=== PATIENT | male | born 1950 | race Caucasian/White ===

== ENCOUNTER 2016-08-29 19:25 | Emergency (ER) | payer MEDICARE ==
[~2016-08-29] VITALS: Ht 177.8 cm; Wt 99.8 kg
[2016-08-29 19:25] VITALS: BP 154/88
[2016-08-29] MEDS ORDERED: TETRACAINE 0.5% OPHTH SOLUTION 4ML BOTTLE. ONE (19:32)
[2016-08-29] MEDS ORDERED: FLUORESCEIN 1MG EYE STRIP. ONE (19:36)
[2016-08-29] MEDS ORDERED: DIPHTH,PERTUSS(ACELL),TET TOX 0.5 ML DISP.SYRIN. VAX IM ONE ×2 (19:41→19:45)
[2016-08-29] MEDS ORDERED: TETRACAINE 0.5% OPHTH SOLUTION 4ML BOTTLE. OD ONE (19:45)
[2016-08-29] MEDS ORDERED: HYDROcodone/APAP 5/325MG 1 TAB TABLET PO ONE (19:45)
[2016-08-29] MEDS ORDERED: FLUORESCEIN 1MG EYE STRIP. OD ONE (19:45)
[2016-08-29] MEDS ORDERED: IBUPROFEN 600 MG TABLET. PO ONE (19:45)
--- NOTE | 2016-08-29 19:46 | PHYS DOC ---
Adult General Chief Complaint Chief Complaint: EYE PROBLEMS HPI HPI Patient is a 66-year-old gentleman who presents here today with a foreign body sensation to his right eye. Patient reports that he was around a lot of sawdust all day today he was working and he had his eye protected. Patient went to take a shower to remove all the sawdust from his hair his body when some of the sawdust in his hair fell into his eye he's been having discomfort ever since. Patient complaining of pain to his right eye. No change in his vision. Patient is waiting approximately an hour and half at home hoping the pain would improve however it has not. Patient has any other symptomology. Patient's tetanus status is not up-to-date. Patient denies any fevers shakes chills nausea vomiting diarrhea. Patient's physical exam was significant for conjunctival injection. Patient's upper and lower eyelids were inverted and no foreign body was identified. Patient's pupils are equally round and reactive to light. Patient instructed motions are all intact. His right eye was fluorescein stained and there was a small area of fluorescein uptake at approximately 12 o'clock position. Patient received instant relief in pain after tetracaine drops were instilled in his right eye. Patient's right eye was irrigated with saline. Patient feels significant improved. Patient be discharged home after tetanus status is updated. #1 corneal abrasion: Likely secondary to sawdust fell from his hair when he was taking a shower. There is no foreign body identified however there is fluorescein uptake on the right eye exam. Tetanus status will be updated. Patient was sent home with ibuprofen. Patient was sent home with Bleph-10 eyedrops. Patient instructed to follow-up with his family physician within one to 2 days for reevaluation. Patient receives return the ER for any further problems. Review of Systems Review of Systems Constitutional: Denies fever or chills [] HENT: Denies nasal congestion or sore throat [] Respiratory: Denies cough or shortness of breath [] Cardiovascular: No additional information not addressed in HPI [] All other review systems are negative except as documented in the history of present illness portion. Current Medications Current Medications Current Medications Medications (Trade) Dose Ordered Sig/Garfield Start Time Stop Time Status Last Admin Dose Admin Fluorescein Sodium (Ful-Alejandra 1mg) [address] [facility]-MED ONCE 08/29/16 19:36 08/29/16 19:37 DC Tetracaine HCl (Tetracaine) 40 drop STK-MED ONCE 08/29/16 19:32 08/29/16 19:33 DC Physical Exam Physical Exam Constitutional: Well developed, well nourished, no acute distress, non-toxic appearance. [] HENT: Normocephalic, atraumatic, bilateral external ears normal, oropharynx moist, no oral exudates, nose normal. [] Eyes: PERRLA, EOMI, Neck: Normal range of motion, no tenderness, supple, no stridor. [] Skin: Warm, dry, [] Extremities: ROM intact, Neurologic: Alert and oriented X 3, normal motor function, normal sensory function, no focal deficits noted. [] Psychologic: Affect normal, judgement normal, mood normal. [] EKG EKG [] Radiology/Procedures Radiology/Procedures [] Course & Med Decision Making Course & Med Decision Making Pertinent Labs and Imaging studies reviewed. (See chart for details) [] Dragon Disclaimer Dragon Disclaimer This chart was dictated in whole or in part using Voice Recognition software in a busy, high-work load, and often noisy Emergency Department environment. It may contain unintended and wholly unrecognized errors or omissions. Departure Departure: Impression: Primary Impression: Corneal abrasion, right Disposition: 01 HOME, SELF-CARE Condition: IMPROVED Referrals: OZZIE MOHAMUD MD (PCP) Patient Instructions: Eye - Corneal Abrasion Scripts Sulfacetamide Sodium (BLEPH-10) 5 Ml Drops 2 DROP OD TID for 5 Days, #5 ML Prov: PRAKASH KAUR MD 08/29/16 Hydrocodone Bit/Acetaminophen (NORCO 5-325 TABLET) 1 Each Tablet 1 TAB PO PRN Q6HRS Y for PAIN, #6 TAB 0 Refills Prov: PRAKASH KAUR MD 08/29/16 Ibuprofen (IBUPROFEN) 600 Mg Tablet 600 MG PO QID Y for PAIN, #20 Prov: PRAKASH KAUR MD 08/29/16 Problem Qualifiers Primary Impression: Corneal abrasion, right Encounter type: initial encounter Qualified Codes: S05.01XA - Injury of conjunctiva and corneal abrasion without foreign body, right eye, initial encounter PRAKASH KAUR MD August 29, 2016 19:46
[2016-08-29] MEDS ORDERED: IBUP600T16 PO (19:48)
[2016-08-29] MEDS ORDERED: HYDR-971 PO (19:48)
[2016-08-29] MEDS ORDERED: SULF5DRO OD (19:48)
[2016-08-29] MEDS ORDERED: SULFACETAMIDE 10% OPHTH SOLUTION 15ML BOTTLE. ONE (19:57)
[2016-08-29] MEDS ORDERED: SULFACETAMIDE 10% OPHTH SOLUTION 15ML BOTTLE. OD ONE (20:15)
[2016-08-29] MEDS ORDERED: ASPI-612 PO (20:25)
[2016-08-29] MEDS ORDERED: ATOR20TA58 PO (20:25)
[2016-08-29] MEDS ORDERED: OMEG1CAP2 PO (20:25)
[2016-08-29] MEDS ORDERED: DICL75TA PO (20:25)
== END 2016-08-29 20:15 | disposition home or self-care (01) ==
LOC: ER 19:25
DX: S05.01XA Injury of conjunctiva and corneal abrasion without foreign body, right eye, initial encounter (principal); X58.XXXA Exposure to other specified factors, initial encounter; Y93.89 Activity, other specified; Y99.8 Other external cause status; Y92.89 Other specified places as the place of occurrence of the external cause
CPT/HCPCS: 90471; 90715; 99284-25

== ENCOUNTER 2019-08-27 08:11 | Emergency (ER) | payer MEDICARE ==
[~2019-08-27] VITALS: Ht 177.8 cm; Wt 97.0 kg
[~2019-08-27 08:11] MED LIST: ASPI-612 PO; ATOR20TA58 PO; DICL75TA PO; HYDR-3165 PO; IBUP600T16 PO; OMEG1CAP2 PO; SULF5DRO OD
[2019-08-27 08:19] VITALS: BP 150/97
[2019-08-27] MEDS ORDERED: FLUORESCEIN 1MG EYE STRIP. ONE (08:21)
[2019-08-27] MEDS ORDERED: TETRACAINE 0.5% OPHTH SOLUTION 4ML BOTTLE. OD ONE (08:30)
[2019-08-27] MEDS ORDERED: ERYT1OIN6 OP (08:56)
[2019-08-27] MEDS ORDERED: GENT5DRO3 OS (08:56)
--- NOTE | 2019-08-27 08:56 | PHYS DOC ---
Past History Past Medical History: Arthritis, High Cholesterol, Other Past Surgical History: Appendectomy, Knee Replacement, Other Alcohol Use: Occasionally Drug Use: None General Adult EDM: Chief Complaint: EYE PROBLEMS HPI: HPI: Patient is a 69-year-old male who presented to ER today for evaluation of left eye problem. Patient said he was cleaning his chimney last night, felt like there was some dirt got into his left eye, he washed his eye with water under the sink last night he felt he got everything out however when he woke up this morning he felt like there is something in his left eye, feeling like the foreign body sensation. Review of Systems: Review of Systems: Constitutional: Denies fever or chills Eyes: Denies change in visual acuity, positive for left eye irritation HENT: Denies nasal congestion or sore throat Respiratory: Denies cough or shortness of breath Cardiovascular: Denies chest pain or edema GI: Denies abdominal pain, nausea, vomiting, bloody stools or diarrhea : Denies dysuria Musculoskeletal: Denies back pain or joint pain Integument: Denies rash Neurologic: Denies headache, focal weakness or sensory changes Endocrine: Denies polyuria or polydipsia Lymphatic: Denies swollen glands Psychiatric: Denies depression or anxiety Heart Score: Risk Factors: Risk Factors: DM, Current or recent (<one month) smoker, HTN, HLP, family h istory of CAD, obesity. Risk Scores: Score 0 - 3: 2.5% MACE over next 6 weeks - Discharge Home Score 4 - 6: 20.3% MACE over next 6 weeks - Admit for Clinical Observation Score 7 - 10: 72.7% MACE over next 6 weeks - Early Invasive Strategies Current Medications: Current Meds: Current Medications Medications (Trade) Dose Ordered Sig/Garfield Start Time Stop Time Status Last Admin Dose Admin Fluorescein Sodium (Ful-Alejandra 1mg) 1 strip STK-MED ONCE 08/27/19 08:21 08/27/19 08:21 DC Tetracaine HCl (Tetracaine) 2 drop 1X ONCE 08/27/19 08:30 08/27/19 08:31 DC Allergies: Allergies: Allergies Coded Allergies Type Severity Reaction Last Updated Verified Penicillins Allergy Severe Anaphylaxis 08/29/16 Yes iodine Allergy Severe Hives 08/29/16 Yes Physical Exam: PE: Constitutional: Well developed, well nourished, no acute distress, non-toxic appearance. [] HENT: Normocephalic, atraumatic, bilateral external ears normal, oropharynx moist, no oral exudates, nose normal. [] Eyes: PERRLA, EOMI, conjunctiva normal, no discharge. There area severe small pieces of foreign bodies under left upper eyelid and one embedded in left cornea. NO HYPHEMA. Neck: Normal range of motion, no tenderness, supple, no stridor. [] Cardiovascular:Heart rate regular rhythm, no murmur [] Lungs & Thorax: Bilateral breath sounds clear to auscultation [] Abdomen: Bowel sounds normal, soft, no tenderness, no masses, no pulsatile masses. [] Skin: Warm, dry, no erythema, no rash. [] Back: No tenderness, no CVA tenderness. [] Extremities: No tenderness, no cyanosis, no clubbing, ROM intact, no edema. [] Neurologic: Alert and oriented X 3, normal motor function, normal sensory function, no focal deficits noted. [] Psychologic: Affect normal, judgement normal, mood normal. [] Current Patient Data: Vital Signs: Vital Signs Date Time Temp Pulse Resp B/P (MAP) Pulse Ox O2 Delivery O2 Flow Rate FiO2 20 08:19 98.2 80 18 150/97 (114) 99 Room Air EKG: EKG: [] Radiology/Procedures: Radiology/Procedures: LEFT CORNEA FOREIGN BODY REMOVAL: tetracaine was used to anesthesized left corrnea, cotton tips were used to sweep the inner upper eye lid to remove the foreign body. An 18 gauge needle was used to flick the foreign body out of left cornea. WOOD LAMP EXAM SHOWN SOME DYE UPTAKE AT 9 OCLOCK POSITION CONSISTENT WITH CORNEA ABRASION. NO HYPHEMA, NO OPEN GLOBE INJURY. [] Course & Med Decision Making: Course & Med Decision Making Pertinent Labs and Imaging studies reviewed. (See chart for details) [] Dragon Disclaimer: Dragon Disclaimer: This electronic medical record was generated, in whole or in part, using a voice recognition dictation system. Departure Departure: Impression: Primary Impression: Corneal abrasion, left Additional Impression: Foreign body of left cornea Disposition: 01 HOME, SELF-CARE Condition: STABLE Referrals: OZZIE MOHAMUD MD (PCP) please follow up with an opthalmologist in 2 days for reevaluation. Patient Instructions: Eye - Corneal Abrasion, Eye - Corneal Foreign Body Scripts Erythromycin Base (Erythromycin) 1 Gm Oint...g. 1 GM OP TID for left cornea abrasion for 7 Days, #1 MISC Prov: OZZIE KEVIN DO 08/27/19 Gentamicin Sulfate (GENTAK) 5 Ml Drops 2 DROP OS QID for left cornea abrasion for 5 Days, #5 ML 0 Refills Prov: OZZIE KEVIN DO 08/27/19 OZZIE KEVIN DO August 27, 2019 08:56
== END 2019-08-27 09:13 | disposition home or self-care (01) ==
LOC: ER 08:11
DX: T15.02XA Foreign body in cornea, left eye, initial encounter (principal); X58.XXXA Exposure to other specified factors, initial encounter; Y93.89 Activity, other specified; Y92.89 Other specified places as the place of occurrence of the external cause; Y99.8 Other external cause status
CPT/HCPCS: 65220; 99284

== ENCOUNTER 2020-10-14 12:29 | Emergency (ER) | payer MEDICARE ==
[~2020-10-14] VITALS: Ht 177.8 cm; Wt 99.1 kg
[~2020-10-14 12:29] MED LIST changes: -ASPI-612 PO; +ASPI-889 PO; +ERYT1OIN6 OP; +GENT5DRO3 OS
--- NOTE | 2020-10-14 12:40 | PHYS DOC ---
Past History Past Medical History: Arthritis, High Cholesterol, Other Past Surgical History: Appendectomy, Knee Replacement, Other Alcohol Use: Occasionally Drug Use: None Adult General HPI HPI Patient is a 70-year-old male presenting for right flank pain. Has history of this, reports he was seen in [place] August 17 and was diagnosed with a right-sided 5 mm kidney stone. He was given appropriate pain medication, Flomax and discharged home with return precautions. Reports his pain subsided x1 day after said ER visit and did not require any additional pain medication but continued to take Flomax faithfully. He is unsure if he passed said stone. Reports he has been asymptomatic until earlier today started reporting right flank pain that radiated into his groin region. States he thinks this is similar flareup to prior kidney stone but is unsure if this is old or new. Denies any other medical issues, no prior history of cardiac disease, no recent fever, chest pain, ripping or tearing sensation in chest, shortness of breath, changes in motor or sensory or neuro function. Reports he is healthy, has cholesterol issues only Review of Systems Review of Systems Fourteen body systems of review of systems have been reviewed. See HPI for pertinent positives and negative responses, other cruz all other systems are negative, non-pertinent or non-contributory Allergies Allergies Allergies Coded Allergies Type Severity Reaction Last Updated Verified Penicillins Allergy Severe Anaphylaxis 08/29/16 Yes iodine Allergy Severe Hives 08/29/16 Yes Physical Exam Physical Exam Constitutional: Well developed, well nourished, no acute distress, non-toxic appearance. HENT: Normocephalic, atraumatic, bilateral external ears normal, oropharynx moist, no oral exudates, nose normal. Eyes: PERRLA, EOMI, conjunctiva normal, no discharge. Neck: Normal range of motion, no tenderness, supple, no stridor. Cardiovascular: Heart rate regular, sinus rhythm, no murmurs rubs or gallops Lungs & Thorax: Bilateral breath sounds clear to auscultation Abdomen: Bowel sounds normal, soft, no tenderness, no masses, no pulsatile masses. Nonsurgical abdomen, no peritoneal signs Skin: Warm, dry, no erythema, no rash. Back: No tenderness, no CVA tenderness. Extremities: No tenderness, no cyanosis, no clubbing, ROM intact, no edema. Neurologic: Alert and oriented X 3, grossly normal motor & sensory function, no focal deficits noted. Psychologic: Affect normal, judgement normal, mood normal. Current Patient Data Vital Signs Vital Signs Date Time Temp Pulse Resp B/P (MAP) Pulse Ox O2 Delivery O2 Flow Rate FiO2 10/14/20 12:41 97.8 61 18 169/102 (124) 99 Room Air Vital Signs Date Time Temp Pulse Resp B/P (MAP) Pulse Ox O2 Delivery O2 Flow Rate FiO2 10/14/20 12:41 97.8 61 18 169/102 (124) 99 Room Air Lab Results Laboratory Tests Test 10/14/20 12:50 10/14/20 12:55 Urine Collection Type Unknown Urine Color Yellow Urine Clarity Clear Urine pH 5.5 Urine Specific Temple >=1.030 Urine Protein Neg Urine Glucose (UA) Neg mg/dL Urine Ketones (Stick) Neg mg/dL Urine Blood Neg Urine Nitrite Neg Urine Bilirubin Neg Urine Urobilinogen Dipstick 0.2 mg/dL Urine Leukocyte Esterase Neg Urine RBC 0 /HPF Urine WBC Rare /HPF Urine Squamous Epithelial Cells Occ /LPF Urine Bacteria 0 /HPF Urine Mucus Slight /LPF White Blood Count 7.2 x10^3/uL Red Blood Count 4.44 x10^6/uL Hemoglobin 13.7 g/dL Hematocrit 40.1 % Mean Corpuscular Volume 90 fL Mean Corpuscular Hemoglobin 31 pg Mean Corpuscular Hemoglobin Concent 34 g/dL Red Cell Distribution Width 15.0 % Platelet Count 224 x10^3/uL Neutrophils (%) (Auto) 65 % Lymphocytes (%) (Auto) 24 % Monocytes (%) (Auto) 7 % Eosinophils (%) (Auto) 3 % Basophils (%) (Auto) 1 % Neutrophils # (Auto) 4.7 x10^3uL Lymphocytes # (Auto) 1.7 x10^3/uL Monocytes # (Auto) 0.5 x10^3/uL Eosinophils # (Auto) 0.2 x10^3/uL Basophils # (Auto) 0.1 x10^3/uL Sodium Level 143 mmol/L Potassium Level 4.2 mmol/L Chloride Level 107 mmol/L Carbon Dioxide Level 25 mmol/L Anion Gap 11 Blood Urea Nitrogen 17 mg/dL Creatinine 0.8 mg/dL Estimated GFR (Cockcroft-Gault) 95.6 Glucose Level 112 mg/dL Calcium Level 8.9 mg/dL Troponin I Quantitative < 0.017 ng/mL Current Medications Medications (Trade) Dose Ordered Sig/Garfield Route PRN Reason Start Time Stop Time Status Last Admin Dose Admin Sodium Chloride 1,000 ml @ 1,000 mls/hr 1X ONCE IV 10/14/20 13:00 10/14/20 13:59 10/14/20 12:59 Ketorolac Tromethamine (Toradol 30mg Vial) 30 mg 1X ONCE IVP 10/14/20 13:00 10/14/20 13:02 DC 10/14/20 12:59 EKG EKG EKG ordered and interpreted by myself at 1305 hrs. as sinus rhythm at 54 bpm, unremarkable intervals, no axis deviation, no acute ischemic findings, no STEMI Radiology/Procedures Radiology/Procedures EXAM: CT ABDOMEN/PELVIS WITHOUT CONTRAST. HISTORY: Right flank pain, renal stones. TECHNIQUE: Computed tomography of the abdomen and pelvis was performed without intravenous contrast. One or more of the following individualized dose reduction techniques were utilized for this examination: 1. Automated exposure control. 2. Adjustment of the mA and/or kV according to patient size. 3. Use of iterative reconstruction technique. COMPARISON: None. FINDINGS: Lung windows through the visualized portions of the bases reveal mild atelectasis or trace pulmonary edema. Coronary atherosclerotic calcifications are noted. A calculus within the right distal ureter measures 7 x 5 mm. There is mild right hydronephrosis and hydroureter with perinephric stranding. There are no additional renal or ureteral calculi. A small gallstone is noted. The liver, pancreas, adrenal glands and spleen are unremarkable without contrast. There are no pathologically enlarged lymph nodes. The prostate is mildly enlarged for patient age. The bladder is decompressed but demonstrates wall thickening. Sigmoid and left colonic diverticulosis is moderate to severe. The appendix is surgically absent. There is no small bowel obstruction. Bone windows reveal a large Schmorl's node at the inferior plate of T8 results in a vertebral body fracture and overall moderate loss of body height. There is a moderate Schmorl's of the inferior endplate of L1. Degenerative disc disease is moderate to severe diffusely. IMPRESSION: 1. 7 mm right distal ureteral calculus with mild proximal obstructive findings. 2. A moderate inferior endplate compression fracture at T8 remains open and extends to the superior endplate. 3. Cholelithiasis. 4. Mild basilar atelectasis versus trace pulmonary edema. Electronically signed by: Fredi Schroeder MD (10/14/2020 1:22 PM) [id number] Heart Score C/O Chest Pain: No HEART Score for Chest Pain: HEART Score for Chest Pain Response (Comments) Value History Slighlty/Non-Suspicious 0 ECG Normal 0 Age > 65 2 Risk Factors 1 or 2 Risk Factors 1 Troponin < Normal Limit 0 Total 3 Risk Factors: Risk Factors: DM, Current or recent (<one month) smoker, HTN, HLP, family history of CAD, obesity. Risk Scores: Risk Factors: DM, Current or recent (<one month) smoker, HTN, HLP, family history of CAD, obesity. Course & Med Decision Making Course & Med Decision Making ABCs unremarkable. I disclosed entirety of ER findings and discussed most likely diagnosis of 7 mm right-sided stone. It is unknown if this is a new stone or prior stone that did not fully pass. I reviewed all labs and imaging results, no acute indication for hospital transfer for stat urologic consultation. As such, continued supportive care with Flomax, pain control and straining of urine work quested. Patient does have outpatient urologist which she is seen at [facility] for prior UTI, states he can call them today before their office shots to review ER visit and need for close outpatient follow-up by the end of the week which I feel is appropriate. In addition, I reviewed findings of fractured spine which is a known issue for patient stemming from traumatic fall during the winter 2019, no emergent indication for further diagnostic work-up and/or transfer while in ER setting. Ultimately, I stressed need for close outpatient follow-up to review today's ER visit. Strict return precautions were also discussed at length with good understanding by patient. Patient voiced understanding and agreement with the plan. Patient knows to come back for repeat evaluation if concerning signs or symptoms present prior to outpatient follow-up. Hemodynamically stable, ambulatory and well-appearing at time of disposition. Dragon Disclaimer Dragon Disclaimer This electronic medical record was generated, in whole or in part, using a voice recognition dictation system. Departure Departure: Impression: Primary Impression: Right kidney stone Referrals: OZZIE MOHAMUD MD (PCP) Patient Instructions: Kidney Stones Additional Instructions: You were seen for flank pain due to a 7 mm right distal ureteral calculus with mild proximal obstructive findings. As discussed, given size there is ap proximately a 60% chance this will pass without any invasive intervention. We are writing you a prescription for pain medication and additional Flomax which should help expel your stone. You should strain your urine to look for the stone. You will need to follow up with the urologists as soon as possible, please contact your urologist at [facility] to discuss need for close outpatient follow-up by the end of the week. I disclosed other findings such as your known back injury that should be followed up with your primary care physician in the outpatient setting should it worsen. You should return to the ED if you develop worsening pain, fever, continued bloody urine, lightheadedness, shortness of breath, chest pain, or any other new or concerning symptoms. Scripts Tamsulosin Hcl (FLOMAX) 0.4 Mg Cap.er.24h 1 CAP PO DAILY for KIDNEY STONE, #30 CAP 0 Refills Prov: NATHAN PUENTE DO 10/14/20 Hydrocodone/Ibuprofen (HYDROCODONE-IBUPROFEN 7.5-200 ) 1 Each Tablet 1 TAB PO PRN Q6HRS PRN for PAIN, #14 TAB 0 Refills Prov: NATHAN PUENTE DO 10/14/20 NATHAN PUENTE DO Oct 14, 2020 12:40
[2020-10-14] MEDS ORDERED: KETOROLAC 30 MG/ML VIAL. IVP ONE (13:00)
[2020-10-14] MEDS ORDERED: IV NORMAL SALINE 1,000ML 1,000 ML IV ONE (13:00)
[2020-10-14 13:14] LABS: BASO # 0.1 x10^3/uL (0.0-0.2); BASO % 1 % (0-3); EOS # 0.2 x10^3/uL (0.0-0.7); EOS % 3 % (0-3); HEMATOCRIT 40.1 % (39.0-53.0); HEMOGLOBIN 13.7 g/dL (13.0-17.5); LYMPH # 1.7 x10^3/uL (1.0-4.8); LYMPH % 24 % (24-48); MEAN CORPUSCULAR HEMOGLOBIN 31 pg (25-35); MEAN CORPUSCULAR HGB CONC 34 g/dL (31-37); MEAN CORPUSCULAR VOLUME 90 fL (79-100); MONO # 0.5 x10^3/uL (0.0-1.1); MONO % 7 % (0-9); NEUT # 4.7 x10^3uL (1.8-7.7); NEUT % 65 % (31-73); PLATELET COUNT 224 x10^3/uL (140-400); RED BLOOD COUNT 4.44 x10^6/uL (4.30-5.70); WHITE BLOOD COUNT 7.2 x10^3/uL (4.0-11.0)
[2020-10-14 13:23] LABS: BILIRUBIN,URINE NEG (NEG); CLARITY,URINE CLEAR; COLOR,URINE YELLOW; GLUCOSE,URINE NEG (NEG)
[2020-10-14 13:24] LABS: BACTERIA,URINE 0 /HPF (0-FEW); NITRITE,URINE NEG (NEG); RBC,URINE 0 /HPF (0-2); UROBILINOGEN,URINE 0.2 mg/dL (0.2 mg/dL); WBC,URINE RARE /HPF (0-4)
[2020-10-14 13:25] LABS: SQUAMOUS EPITHELIAL CELL,UR OCC /LPF
--- NOTE | 2020-10-14 13:25 | RAD ---
EXAM: CT ABDOMEN/PELVIS WITHOUT CONTRAST. HISTORY: Right flank pain, renal stones. TECHNIQUE: Computed tomography of the abdomen and pelvis was performed without intravenous contrast. One or more of the following individualized dose reduction techniques were utilized for this examinat ion: 1. Automated exposure control. 2. Adjustment of the mA and/or kV according to patient size. 3. Use of iterative reconstruction technique. COMPARISON: None. FINDINGS: Lung windows through the visualized portions of the bases reveal mild atelectasis or trace pulmonary edema. Coronary atherosclerotic calcifications are noted. A calculus within the right distal ureter measures 7 x 5 mm. There is mild right hydronephrosis and h ydroureter with perinephric stranding. There are no additional renal or ureteral calculi. A small gallstone is noted. The liver, pancreas, adrenal glands and spleen are unremarkable without c ontrast. There are no pathologically enlarged lymph nodes. The prostate is mildly enlarged for patient age. The bladder is decompressed but demonstrates wall th ickening. Sigmoid and left colonic diverticulosis is moderate to severe. The appendix is surgically a bsent. There is no small bowel obstruction. Bone windows reveal a large Schmorl's node at the inferior plate of T8 results in a vertebral body fr acture and overall moderate loss of body height. There is a moderate Schmorl's of the inferior endpla te of L1. Degenerative disc disease is moderate to severe diffusely. IMPRESSION: 1. 7 mm right distal ureteral calculus with mild proximal obstructive findings. 2. A moderate inferior endplate compression fracture at T8 remains open and extends to the superior e ndplate. 3. Cholelithiasis. 4. Mild basilar atelectasis versus trace pulmonary edema. Electronically signed by: Fredi Schroeder MD (10/14/2020 1:22 PM) [id number]
[2020-10-14 13:28] LABS: CALCIUM 8.9 mg/dL (8.5-10.1); CREATININE 0.8 mg/dL (0.7-1.3); GFR 95.6; POTASSIUM 4.2 mmol/L (3.5-5.1)
[2020-10-14] MEDS ORDERED: HYDR-1179 PO (13:56)
[2020-10-14] MEDS ORDERED: TAMS0.4C97 PO (13:57)
[2020-10-14] MEDS ORDERED: TAMSULOSIN 0.4 MG CAP.ER.24H. PO ONE (14:00)
[2020-10-14] MEDS ORDERED: MORPHINE SULFATE 4 MG/ML DISP.SYRIN. IV ONE (14:00)
[2020-10-14 14:08] VITALS: BP 146/95
--- NOTE | 2020-10-15 21:29 | EKG ---
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
== END 2020-10-14 14:10 | disposition home or self-care (01) ==
LOC: ER 12:29
DX: N20.0 Calculus of kidney (principal); E78.5 Hyperlipidemia, unspecified; Z88.0 Allergy status to penicillin
CPT/HCPCS: 36415; 74176; 80048; 81001; 84484; 85025; 93005; 96361; 96374; 96375; 99285; J1885; J2270; J7030